=== PATIENT | male | born 1990 | race Caucasian/White ===

== ENCOUNTER 2023-08-31 10:31 | Outpatient (CLI) | payer MEDICARE, MEDICAID, SELFPAY ==
--- NOTE | 2023-08-31 11:10 | CT_ITS ---
FINAL REPORT TECHNIQUE: Axial CT of the brain with contrast. Coronal reformatted images were obtained. This study was performed with techniques to keep radiation doses as low as reasonably achievable, (ALARA). Individualized dose reduction techniques using automated exposure control or adjustment of mA and/or kV according to the patient's size were employed. CLINICAL HISTORY: seizure FINDINGS: No mass, edema, or midline shift is identified. The ventricles are normal in size. There is no hemorrhage. No abnormal contrast enhancement is seen. IMPRESSION: No acute intracranial abnormality. Reviewed, Interpreted and Dictated by Wendy Mejia MD Transcribed by Yesi Bennett Authenticated and [facility]
[2023-08-31 11:16] LABS: Basophils # 0.1 K/mm3 (0-0.2); Basophils % 1.2 % (0.1-2.0); Eosinophils # 0.6 K/mm3 (0.0-0.4); Eosinophils % 5.8 % (0.1-12.0); Hemoglobin 15.8 g/dL (14.1-18.0); Lymphocytes % 30.4 % (10-50); Mean Corpuscular HGB Conc 38.6 g/dL (31.8-35.4); Mean Corpuscular Hemoglobin 33.5 pg (27.0-31.2); Mean Corpuscular Volume 86.9 fl (80-94); Mean Platelet Volume 8.2 fl (7.4-10.4); Monocytes # 0.5 K/mm3 (0.1-1.0); Monocytes % 4.6 % (1.7-9.3); Neutrophils # 5.7 K/mm3 (1.8-7.8); Platelet Count 292 K/mm3 (142-424); Red Blood Count 4.72 M/mm3 (4.60-6.20); Red Cell Distribution Width 13.1 % (11.5-17.5); White Blood Count 9.9 K/mm3 (4.8-10.8)
[2023-08-31] MEDS: SODIUM CHLORIDE 0.9% 10ML SYR (RAD ONLY) 10 ML IV (11:50)
[2023-08-31] MEDS: IOPAMIDOL-300 (61%) 100ML VIAL 100 ML IV (11:50)
[2023-08-31 11:52] LABS: Hemoglobin A1C 6.2 % (4.0-6.0)
[2023-08-31 11:58] LABS: Cholesterol 184 mg/dl (140-200); HDL Cholesterol 37 mg/dl (40-60); Triglycerides 206 mg/dl (30-150); VLDL Cholesterol 41 mg/dL (0-40)
[2023-08-31 11:58] LABS: Alanine Aminotransferase 29 U/L (12-78); Albumin Level 4.1 g/dl (3.5-5.0); Albumin/Globulin Ratio 1.4 (1.1-1.8); Alkaline Phosphatase 65 U/L (38-126); Anion Gap 10.8 mEq/L (5-15); Aspartate Amino Transferase 26 U/L (17-59); Bilirubin,Total 0.2 mg/dl (0.2-1.3); Blood Urea Nitrogen 19 mg/dl (9-20); Calcium 9.5 mg/dl (8.4-10.2); Carbon Dioxide 30 mmol/L (22.0-30.0); Chloride 103 mmol/L (98-107); Estimated Glomerular Filt Rate 70 ml/min (>60); GFR (African American) 85 ML/MIN (>60); Globulin 2.9 g/dL (1.3-3.2); Glucose 139 mg/dl (74-100); Potassium 4.8 mmoL/L (3.5-5.1); Sodium 139 mmol/L (136-145)
[2023-08-31 12:09] LABS: Direct LDL Cholesterol 104.37 mg/dL (100-129)
[2023-08-31 12:28] LABS: Thyroid Stimulating Hormone 0.66 uIU/mL (0.465-4.68)
[2023-08-31 12:47] LABS: Vitamin B12 346 pg/mL (239-931)
== END 2023-08-31 23:59 ==
LOC: RAD 10:32
PROVIDERS: PCP Nurse Practitioner; Visit Provider Nurse Practitioner
DX: E66.9 Obesity, unspecified (principal); G40.909 Epilepsy, unspecified, not intractable, without status epilepticus; Z13.1 Encounter for screening for diabetes mellitus; Z13.220 Encounter for screening for lipoid disorders; R73.9 Hyperglycemia, unspecified; E78.1 Pure hyperglyceridemia; Z68.41 Body mass index [BMI] 40.0-44.9, adult
CPT/HCPCS: 36415; 70460; 80053; 80061; 82607; 83036; 84443; 85025; Q9967

== ENCOUNTER 2023-09-16 20:30 | Emergency (ER) | payer MEDICARE, SELFPAY ==
[2023-09-16] MEDS: IOPAMIDOL-300 (61%) 100ML VIAL 100 ML IV (20:00)
[2023-09-16 20:30] VITALS: BP 149/106; PULSE 82; RESP 12; TEMP 36.9; O2SAT 97; BMI 37.5
[2023-09-16 20:31] VITALS: BP 149/106; PULSE 82; O2SAT 97
--- NOTE | 2023-09-16 20:32 | CT_ITS ---
PROCEDURE INFORMATION: Exam: CT Head Without And With Contrast Exam date and time: 09/16/2023 9:27 PM Age: 33 years old Clinical indication: Other: Seizure; Additional info: New onset seizures TECHNIQUE: Imaging protocol: Computed tomography of the head without and with contrast. Radiation optimization: All CT scans at this facility use at least one of these dose optimization techniques: automated exposure control; mA and/or kV adjustment per patient size (includes targeted exams where dose is matched to clinical indication); or iterative reconstruction. Contrast material: ISOVUE; Contrast volume: 100 ml; Contrast route: IV; COMPARISON: CT HEAD/BRAIN W CON 08/31/2023 11:33 AM FINDINGS: Brain: Normal. No hemorrhage. Unremarkable white matter. No mass effect. Cerebral ventricles: No ventriculomegaly. Paranasal sinuses: Visualized sinuses are unremarkable. No fluid levels. Mastoid air cells: Visualized mastoid air cells are well aerated. Bones/joints: Unremarkable. No acute fracture. Soft tissues: Unremarkable. IMPRESSION: No acute intracranial abnormality.
--- NOTE | 2023-09-16 20:32 | XR_ITS ---
PROCEDURE INFORMATION: Exam: XR Chest Exam date and time: 09/16/2023 9:30 PM Age: 33 years old Clinical indication: Other: Seizure; Additional info: [place] seizures TECHNIQUE: Imaging protocol: Radiologic exam of the chest. Views: 1 view. COMPARISON: No relevant prior studies available. FINDINGS: Lungs: Unremarkable. No consolidation. Pleural spaces: Unremarkable. No pleural effusion. No pneumothorax. Heart/Mediastinum: Unremarkable. No cardiomegaly. Bones/joints: Unremarkable. IMPRESSION: No acute findings.
--- NOTE | 2023-09-16 20:38 | ECG_ITS ---
APPROVED REPORT Exam: Resting ECG HR:76 bpm ECG Measurements Heart Rate 76 AXES TN 170 P 28 QRSd 88 QRS 19 QT 371 T 25 QTc 402 Conclusion SINUS RHYTHM WITH SINUS ARRHYTHMIA NORMAL ECG UNCONFIRMED REPORT Electronically signed by : Edvin Arriaza MD 09/17/2023 08:11:30
[2023-09-16] MEDS: levETIRAcetam 4,500 MG in 0.9 % SODIUM CHLORIDE 100 ML 290 MG IV (20:43)
[2023-09-16 20:45] LABS: Basophils # 0.1 K/mm3 (0-0.2); Basophils % 0.5 % (0.1-2.0); Eosinophils # 0.6 K/mm3 (0.0-0.4); Eosinophils % 5.4 % (0.1-12.0); Hemoglobin 15.6 g/dL (14.1-18.0); Lymphocytes # 3.1 K/mm3 (0.7-4.5); Lymphocytes % 29.3 % (10-50); Mean Corpuscular Hemoglobin 29.5 pg (27.0-31.2); Mean Corpuscular Volume 86.8 fl (80-94); Monocytes # 0.6 K/mm3 (0.1-1.0); Monocytes % 5.6 % (1.7-9.3); Neutrophils # 6.3 K/mm3 (1.8-7.8); Neutrophils % 59.2 % (37.0-80.0); Platelet Count 272 K/mm3 (142-424); Red Cell Distribution Width 13.2 % (11.5-17.5); White Blood Count 10.6 K/mm3 (4.8-10.8)
--- NOTE | 2023-09-16 20:45 | [facility].EDGENADL ---
Discharge Plan Disposition Patient Disposition: Home, Self-Care Chief Complaint: Seizure Prescriptions Prescriptions: No Action levetiracetam 500 mg tablet 500 mg PO BID Qty: 60 2RF ciprofloxacin-dexamethasone 0.3-0.1 % drops,suspension 4 drp otic (ear) BID 7 Days Qty: 7.5 0RF Referrals Follow up/Referrals: Laisha Haji MD [Staff Physician] - See instructions Activity Restrictions/Add. Instructions Additional Instructions/Restrictions: Talk to family provider about follow-up with Dr. Haji for EEG. Increase Keppra to 1 g twice daily. Call your family doctor to establish care for this visit to the emergency department and schedule follow-up within 48 hours to ensure improvement. If you have any worsening of your condition or any other concerning signs or symptoms, return to the emergency department or your primary care doctor for further evaluation. Seizure precautions - do not do any of these activities until cleared by your neurologist: 1) avoid sleep deprivation 2) avoid open bodies of water and open flames 3) avoid swimming alone 4) take showers, do not take baths 5) avoid any situation where loss of consciousness may predispose to injury or 6) avoid driving Clinical Impressions Clinical Impression: Seizure-like activity Instructions Patient Instructions: DI for Seizure Disorder -- Adult, DI for Seizure (Not Epilepsy/Seizure Disorder), DI for Seizure Disorder -- Child Discharge ED Provider: Bartolome Rizvi General Adult HPI General Chief complaint: Seizure Stated complaint: seizures Time Seen by Provider: 09/16/23 20:32 Mode of Arrival: EMS Source of Information: EMS Limitations: No Limitations Description of Symptoms (Recalled from ER Triage Doc. by RN): Patient was started on Keppra 3 weeks ago by PCP for new onset seizures. Family reported that they wittnessed about 10 seizures today. Upon EMS arrival patient was convulsing. EMS gave 10mg IM Verced at 1936. History of Present Illness HPI narrative: 33-year-old male recent diagnosis of new onset seizures without further workup presenting with seizure-like activity. Patient recently started on Keppra 500 mg twice daily. Patient was at home and family reported he has had 10+ seizures today. Family called EMS reporting another seizure. When EMS arrived, glucose 76, patient actively seizing, was given 10 mg IM Versed. Patient intermittently having unresponsive episodes with EMS, protecting airway appropriately. No further history available Related Data Previous Rx's Medication Instructions Recorded ciprofloxacin 0.3 %-dexamethasone 4 drp otic (ear) BID 7 days #7.5 mL 08/31/23 0.1 % ear drops,suspension levetiracetam 500 mg tablet 500 mg PO BID #60 tabs 08/31/23 Allergies Allergy/AdvReac Type Severity Reaction Status Date / Time acetaminophen [From Vicodin] Allergy Mild Verified 08/31/23 08:48 escitalopram [From Lexapro] Allergy Mild Verified 08/31/23 08:48 fluoxetine [From Prozac] Allergy Mild Verified 08/31/23 08:48 hydrocodone [From Vicodin] Allergy Mild Verified 08/31/23 08:48 latex Allergy Mild Verified 08/31/23 08:48 methylphenidate Allergy Mild Verified 08/31/23 08:48 [From Ritalin] phenytoin [From Dilantin] Allergy Mild Verified 08/31/23 08:48 pseudoephedrine Allergy Mild Verified 08/31/23 08:48 [From Sudafed] lavendar Allergy Severe Blister Uncoded 08/31/23 08:48 PFSH [facility] Disclaimer: The information contained in this section may have been updated after the patient was seen, as this information can be updated by other users. Medical History (Updated 09/16/23 @ 22:37 by Bartolome Rizvi MD) History of seizures as a child IFG (impaired fasting glucose) Obesity Seizure disorder Surgical History (Updated 08/31/23 @ 08:50 by JEZ Mobley) History of ankle surgery History of back surgery Family History (Updated 08/31/23 @ 08:50 by JEZ Mobley) Mother Diabetes Hypertension Father Heart abnormality Hypertension Social History (Updated 08/31/23 @ 08:53 by JEZ Mobley) Smoking Status: Unknown if ever smoked alcohol intake: former current occupational status: employed Travel in the last 8 weeks: Inside the [place] ROS Obtained: Yes All systems reviewed & no additional complaints except as documented Physical Exam General General appearance: lethargic and other (Postictal) Head Head exam: atraumatic ENT ENT exam: Present other (No evidence of tongue or cheek biting) Respiratory Respiratory exam: Present normal lung sounds bilaterally; Absent respiratory distress Cardiovascular Cardiovascular exam: Present regular rate and normal rhythm Abdominal Exam Abdominal exam: Present soft; Absent distention, tenderness or guarding Neurological Exam Neurological exam: Present alert, CN II-XII intact, normal gait and other (GCS 11); Absent motor sensory deficit Medical Decision Making Medical Records Medical records reviewed: Yes I reviewed the patient's medical records. Christian Inquiry Pt receiving controlled substance: No Christian was queried for this patient: No Vital Signs: 09/16/23 20:30 09/16/23 20:31 Temperature 98.4 F Temperature Source Oral Pulse Rate 82 Pulse Rate [Radial] 82 Respiratory Rate 12 Blood Pressure 149/106 H Blood Pressure [Right Arm] 149/106 H Blood Pressure Mean [Right Arm] 120 Blood Pressure Source [Right Arm] Automatic Cuff Blood Pressure Position [Right Arm] Supine 02 Sat by Pulse Oximetry 97 97 Oxygen Delivery Method Room Air Lab Data Lab Results 09/16/23 20:35: WBC 10.6, RBC 5.30, Hgb 15.6, Hct 46.0, MCV 86.8, MCH 29.5, MCHC 34.0, RDW 13.2, Plt Count 272, MPV 8.0, Neut % (Auto) 59.2, Lymph % (Auto) 29.3, [place] % (Auto) 5.6, Eos % (Auto) 5.4, Baso % (Auto) 0.5, Neut # (Auto) 6.3, Lymph # (Auto) 3.1, [place] # (Auto) 0.6, Eos # (Auto) 0.6 H, Baso # (Auto) 0.1, Sodium 140, Potassium 4.3, Chloride 104, Carbon Dioxide 32 H, Anion Gap 8.3, BUN 23 H, Creatinine 1.50 H, Estimated Creat Clear 136, Estimated GFR 54 L, Est GFR ( Amer) 66, Glucose 108 H, Lactate 1.1, Calcium 9.4, Total Bilirubin 0.4, AST 32, ALT 39, Alkaline Phosphatase 69, Troponin I 0.02, Total Protein 8.0, Albumin 4.4, Globulin 3.6 H, Albumin/Globulin Ratio 1.2, TSH 1.03, Thyroxine (T4) 7.9 09/16/23 20:51: Urine Color Yellow, Urine Appearance Clear, Urine pH 6.0, Ur Specific [place] 1.020, Urine Protein 2+, Urine Glucose (UA) Negative, Urine Ketones Negative, Urine Blood 1+, Urine Nitrate Negative, Urine Bilirubin Negative, Urine Urobilinogen 0.2, Ur Leukocyte Esterase Negative, Urine RBC 5-10, Urine WBC Occasional, Ur Squamous Epith Cells Occasional, Urine Bacteria None, Urine Opiates Screen Negative, Urine Methadone Screen Negative, Ur Barbituates Screen Negative, Ur Phencyclidine Scrn Negative, Ur Amphetamines Screen Negative, U Benzodiazepines Scrn Positive H, Urine Cocaine Screen Negative, U Marijuana (THC) Screen Positive H 09/16/23 20:35 09/16/23 20:35 Orders (Tests/Meds): ED MEDICATIONS Discontinued Medications Generic Name Dose Route Start Last Admin Trade Name Freq PRN Reason Stop Dose Admin Levetiracetam 4,500 mg/ Sodium 145 mls @ 290 mls/hr 09/16/23 20:32 09/16/23 20:43 Chloride IV 09/16/23 20:33 290 mls/hr ONCE ONE Administration Iopamidol 50 ml 09/16/23 21:41 09/16/23 21:42 Iopamidol-300 (61%) 50ml Vial IV 09/16/23 21:42 50 ml ONCE ONE Administration Protocol Iopamidol 50 ml 09/16/23 21:42 09/16/23 21:43 Iopamidol-300 (61%) 50ml Vial IV 09/16/23 21:43 50 ml ONCE ONE Administration Protocol Sodium Chloride 10 ml 09/16/23 21:41 Sodium Chloride 0.9% 10ml Syr (Rad Only) IV 09/16/23 21:42 ONCE ONE ORDERS Category Date Time Status CT head/brain wo/w con Stat Cat Scan 09/16/23 20:32 Completed CXR --portable [XR chest portable] Stat Exams 09/16/23 20:32 Completed CBC w/Auto Diff [Complete Blood Count Auto Diff] Stat Lab 09/16/23 20:35 Completed CMP [Comprehensive Metabolic Panel] Stat Lab 09/16/23 20:35 Completed Lactic Acid Stat Lab 09/16/23 20:35 Completed T4 (Thyroxine) Stat Lab 09/16/23 20:35 Completed TSH [Thyroid Stimulating Hormone] Stat Lab 09/16/23 20:35 Completed Trop I [Troponin I] Stat Lab 09/16/23 20:35 Completed Troponin I Q3H Lab 09/16/23 23:45 Ordered Troponin I Q3H Lab 09/17/23 02:45 Ordered UA [Urinalysis and Microscopic] Stat Lab 09/16/23 20:51 Completed UDS [Drug Screen,Urine] Stat Lab 09/16/23 20:51 Completed Blood Culture Stat Micro 09/16/23 20:52 Received ECG initial [place] Routine Y 09/16/23 20:38 Completed Medical Decision Narrative: 33-year-old male recent diagnosis of new onset seizures without further workup presenting with seizure-like activity. Patient recently started on Keppra 500 mg twice daily. Patient was at home and family reported he has had 10+ seizures today. Family called EMS reporting another seizure. When EMS arrived, glucose 76, patient actively seizing, was given 10 mg IM Versed. Patient intermittently having unresponsive episodes with EMS, protecting airway appropriately. No further history available. It should be noted that patient has new seizure disorder that does not appear to be at goal care which is complicating current presentation. History was obtained via conversation with EMS. On arrival, patient hemodynamically stable, alert, postictal, GCS 11, moving all extremities spontaneously, pupils equal and reactive to light. Full physical exam performed and significant for postictal male in no acute distress. No tongue biting. Intermittently following commands. Mumbling, not speaking in full sentences. No unilateral deficits or obvious, focal neurologic deficits. Abdomen soft, nontender, nondistended. Pulses equal and symmetric. Cardiopulmonary exam within normal limits. Patient had 1 episode of seizure-like activity, and after entered the room, painful stimulus applied to patient's left thumb and aborted seizure. Differential includes intoxication, withdrawal, intracranial mass, metabolic disorder, new onset seizure disorder, arrhythmia, others. Patient was given 4.5 g Keppra load, fluid bolus for symptomatic management and correction of underlying abnormalities. Workup independently interpreted and significant for nonactionable CBC or chemistry. Mild dehydration, but patient received fluids. Lactate negative, troponin negative, TSH and T4 negative. Urinalysis negative, toxicology screen in the urine positive for marijuana, as well as iatrogenic benzodiazepines. CT head without acute concern for intracranial mass or abnormality. See radiology read for full review of final results. Independent interpretation of EKG shows sinus rhythm 76 beats a minute no ST or T wave changes concerning for acute ischemia. NC, QRS, QT intervals within normal limits. On reevaluation, patient resting comfortably bed. No further seizure activity. Patient states that he is able to remember some of the seizures, but not others, some because of the blackout, some do not. Sometimes he feels as if somebody is muffling my ears, but he is still aware of things going on. Given previous history of seizure disorder as a child I think patient would hit from EEG whether inpatient or outpatient. Lengthy discussion was had with patient and regarding outpatient management with 1 g of Keppra twice daily versus transfer and further evaluation with EEG. Both opting for outpatient management. Keppra was increased to 1000 mg twice daily from 500 twice daily. Given patient presentation, workup, history, this most likely represents acute seizure disorder versus conversion disorder. Because patient at baseline without signs or symptoms of clinical decompensation, deemed appropriate for discharge. Results were relayed to patient who voiced understanding and were agreeable to outpatient management and follow up. At the time of discharge the patient was hemodynamically stable, tolerating PO, and mobilizing appropriately. Critical Care Critical Care Time Critical Care Time: Yes (neurologic) Attestation: On 09/16/23, the high probability of a clinically significant, sudden or life threatening deterioration of the following system(s) required my full and direct attention, intervention and personal management. The time I documented below is in addition to time spent performing reported procedures but includes the following listed in this critical care notation. Total Time Total Critical Care Time: 35
[2023-09-16 20:46] LABS: Chloride 104 mmol/L (98-107)
[2023-09-16 20:47] LABS: Potassium 4.3 mmoL/L (3.5-5.1); Sodium 140 mmol/L (136-145)
[2023-09-16 20:49] LABS: Alanine Aminotransferase 39 U/L (12-78); Aspartate Amino Transferase 32 U/L (17-59); Blood Urea Nitrogen 23 mg/dl (9-20); Creatinine Clearance Estimated 136 mL/min (50-200); Estimated Glomerular Filt Rate 54 ml/min (>60); GFR (African American) 66 ML/MIN (>60)
[2023-09-16 20:50] LABS: Albumin Level 4.4 g/dl (3.5-5.0); Albumin/Globulin Ratio 1.2 (1.1-1.8); Alkaline Phosphatase 69 U/L (38-126); Anion Gap 8.3 mEq/L (5-15); Bilirubin,Total 0.4 mg/dl (0.2-1.3); Calcium 9.4 mg/dl (8.4-10.2); Carbon Dioxide 32 mmol/L (22.0-30.0); Globulin 3.6 g/dL (1.3-3.2); Glucose 108 mg/dl (74-100)
[2023-09-16 20:51] LABS: Lactic Acid 1.1 mmol/L (0.7-2.1)
[2023-09-16 20:54] LABS: Microscopic, Urine URINE MICROSCOPIC (MICROSCOPIC)
[2023-09-16 21:03] LABS: Troponin I 0.02 ng/ml (0.00-0.034)
[2023-09-16 21:07] LABS: T4 (Thyroxine) 7.9 ug/dl (5.53-11.0)
--- NOTE | 2023-09-16 21:13 | PC.NURSE ---
and RN's at bedside at this time.
[2023-09-16 21:17] LABS: Appearance,Urine CLEAR (Clear); Bilirubin,Urine Negative (Negative); Blood, Urine 1+ (Negative); Color,Urine YELLOW (Yellow); Glucose,Urine (UA) Negative (Negative); Ketones,Urine Negative (Negative); Leukocyte Esterase,Urine Negative (Negative); Nitrate,Urine Negative (Negative); Protein,Urine 2+ (Negative); Urobilinogen,Urine 0.2 EU/dl (0.2)
[2023-09-16 21:21] LABS: Thyroid Stimulating Hormone 1.03 uIU/mL (0.465-4.68)
--- NOTE | 2023-09-16 21:22 | PC.NURSE ---
patient gone to CT at this time.
[2023-09-16 21:30] LABS: Barbiturates Screen,Urine Negative ng/ml (<200); Benzodiazepines Screen,Urine Positive ng/ml (<200)
[2023-09-16 21:31] LABS: Amphetamine/Metha Screen,Urine Negative ng/ml (<1000); Methadone Screen,Urine Negative ng/ml (<300)
[2023-09-16 21:32] LABS: Cannabinoid Screen,Urine Positive ng/ml (<50)
[2023-09-16 21:33] LABS: Cocaine Screen,Urine Negative ng/ml (<300); Opiate Screen,Urine Negative ng/ml (<300)
[2023-09-16 21:34] LABS: Phencyclidine Screen,Urine Negative ng/ml (<25)
--- NOTE | 2023-09-16 21:38 | PC.NURSE ---
patient back in room at this time.
[2023-09-16 21:39] LABS: Squamous Epithelial Cell,Urine Occasional #/hpf (0-5); WBC,Urine Occasional #/hpf (0-3)
--- NOTE | 2023-09-16 22:25 | PC.NURSE ---
Answered patients call light at this time. Assisted patient with needs voiced.
--- NOTE | 2023-09-16 22:30 | PC.NURSE ---
in room talking with patient at this time.
[2023-09-16 22:49] VITALS: BP 138/87; PULSE 79; RESP 16; TEMP 36.9; O2SAT 97
== END 2023-09-16 22:50 | disposition home or self-care (01) ==
PROVIDERS: Emergency Provider Emergency Medicine; PCP Nurse Practitioner Acute Care
DX: G40.919 Epilepsy, unspecified, intractable, without status epilepticus (principal); E86.0 Dehydration
CPT/HCPCS: 70470; 71045; 80053; 80307; 81001; 83605; 84436; 84443; 84484; 85025; 87040; 93005; 99285; J1953; Q9967